=== PATIENT | male | born 1995 | race Caucasian/White ===

== ENCOUNTER 2018-10-23 19:34 | Emergency (ER) | payer OTHER | END 2018-10-23 23:47 | disposition home or self-care (01) | LOC: FTE 19:34 | DX: J02.9 Acute pharyngitis, unspecified (principal) | CPT/HCPCS: 71045; 93005; 99284-25 ==

== ENCOUNTER 2018-10-28 08:51 | Emergency (ER) | payer SELFPAY, OTHER | END 2018-10-28 11:30 | disposition left against medical advice (07) | LOC: E/R 08:51 | DX: Z53.21 Procedure and treatment not carried out due to patient leaving prior to being seen by health care provider (principal) ==